=== PATIENT | male | born 1960 | race Two or more races ===

== ENCOUNTER 2017-07-19 02:52 | Emergency (ER) | payer OTHER ==
[2017-07-19 03:00] VITALS: TEMP 98.2
[2017-07-19] MEDS ORDERED: ASPIRIN 81 MG CHEWABLE TAB PO ONE (03:16)
--- NOTE | 2017-07-19 03:16 | CPEKG ---
Heart Rate: 86 RR Interval: 698 P-R Interval: 172 QRSD Interval: 104 QT Interval: 380 QTC Interval: 455 P [place]: 40 QRS [place]: -33 T Wave [place]: 5 EKG Severity - OTHERWISE NORMAL ECG - EKG Impression: SINUS RHYTHM EKG Impression: LEFT AXIS DEVIATION Electronically Signed By: Alejandra Marmolejo 20-Jul-2017 07:39:12
[2017-07-19 03:41] LABS: PLATELET COUNT 221 10^3/uL (150-400)
--- NOTE | 2017-07-19 03:46 | EDPHY ---
H & P Stated Complaint: CP since 130am Time Seen by Provider: 07/19/17 03:12 HPI/ROS: HPI The patient presents with chest pain which began at about 1:30 a.m. When he awoke to use the bathroom. The pain is achy, in his mid anterior chest, does not radiate, is mild, has been constant. It is improved when he takes deep breaths. He does not have any dizziness, neck pain, diaphoresis, shortness of breath, leg swelling. For the last 1-2 weeks he has had left-sided shoulder pain which he experiences only at night when he is holding his I pad in front of him in his left hand.. REVIEW OF SYSTEMS Constitutional: No fever, no chills. Eyes: No discharge. ENT: No sore throat. Cardiovascular: Positive for chest pain, no palpitations. Respiratory: No cough, no shortness of breath. Gastrointestinal: No abdominal pain, no vomiting. Genitourinary: No hematuria. Musculoskeletal: No back pain. Skin: No rashes. Neurological: No headache. PMHx: Hypertension, diabetes, hyperlipidemia Soc Hx: Nonsmoker FHx: Mother with CABG at 71 PHYSICAL General Appearance: Alert, no distress Eyes: Pupils equal and round no pallor or injection ENT, Mouth: Mucous membranes moist Respiratory: There are no retractions, lungs are clear to auscultation Cardiovascular: Regular rate and rhythm Gastrointestinal: Abdomen is soft and non-tender, no masses, bowel sounds normal Neurological: A&O, moves all extremities Skin: Warm and dry, no rashes Musculoskeletal: Neck is supple non tender Extremities: symmetrical, full range of motion Psychiatric: Patient is oriented X 3, there is no agitation Source: Patient Exam Limitations: No limitations - Personal History Current Tetanus/Diphtheria Vaccine: Yes - Medical/Surgical History Hx Asthma: No Hx Chronic Respiratory Disease: No Hx Diabetes: Yes Hx Cardiac Disease: No Hx Renal Disease: No Hx Cirrhosis: No Hx Alcoholism: No Hx HIV/AIDS: No Hx Splenectomy or Spleen Trauma: No Other PMH: DM 2, HTN, high cholesterol, - Social History Smoking Status: Never smoked Constitutional: Initial Vital Signs Temperature (C) 36.8 C 07/19/17 02:55 Heart Rate 93 07/19/17 02:55 Respiratory Rate 18 07/19/17 02:55 Blood Pressure 144/92 H 07/19/17 02:55 O2 Sat (%) 92 07/19/17 02:55 O2 Delivery Mode Room Air Allergies/Adverse Reactions: No Known Allergies Allergy (Unverified 07/19/17 02:59) Home Medications: Medication Instructions Recorded Actos 07/19/17 Aspirin 81mg (*) 07/19/17 Crestor 07/19/17 Jardiance 07/19/17 Lisinopril 07/19/17 Medical Decision Making - Diagnostics EKG Interpretation: EKG: Complete interpretation has been separately recorded in the [facility] archive. Summary impression: No ST segment changes Imaging Results: Chest x-ray two view shows no cardiomegaly, no infiltrate, interpreted by me, radiology interpretation is pending. Differential Diagnosis: This is a 56-year-old male with diabetes, hypertension, hyperlipidemia who presents with chest pain which occurred while at rest while lying in bed tonight. The pain is achy, in his mid chest, and does not have any associated features. He is concerned because over the last several weeks he has had left- sided shoulder pain while using his phone. Differential diagnosis includes ACS, muscle strain, GERD. In the emergency department workup including chest x-ray, EKG, basic labs and troponin were unremarkable. Patient became chest pain-free and felt well. Repeat troponin was performed and was negative again. I feel the patient is suitable for outpatient workup of his pain. He does go to the [facility] for his care and thus will contact his primary care doctor to arrange for Cardiology follow-up in the next few days. He is already on baby aspirin. - Data Points Laboratory Results: Laboratory Results 07/19/17 03:08 07/19/17 03:08 Medications Given: Discontinued Medications Aspirin (Aspirin) 324 mg PO EDNOW ONE Stop: 07/19/17 03:17 Last Admin: 07/19/17 03:24 Dose: 324 mg Departure - Departure Disposition: Home, Routine, Self-Care Clinical Impression: Chest pain Condition: Good Instructions: Chest Pain (ED) Additional Instructions: Please return to the emergency department if your worse in any way. Otherwise, I recommend you follow up with your primary care doctor for referral to Cardiology. Referrals: MARTHA SCHMID [Other] - As per Instructions
[2017-07-19 05:15] VITALS: BP 112/62; PULSE 79; RESP 16; O2SAT 98
== END 2017-07-19 06:08 | disposition home or self-care (01) ==
DX: R07.9 Chest pain, unspecified (principal); I10 Essential (primary) hypertension; E11.9 Type 2 diabetes mellitus without complications; Z79.82 Long term (current) use of aspirin